=== PATIENT | female | born 1960 | race Caucasian/White ===

== ENCOUNTER 2019-11-07 18:04 | Emergency (ER) | payer BC, OTHER ==
[~2019-11-07] VITALS: Ht 182.9 cm; Wt 101.6 kg
[2019-11-07] MEDS ORDERED: TRAZODONE HCL100 MG PO (18:16)
[2019-11-07] MEDS ORDERED: HYDROCHLOROTHIA25 M2 PO (18:16)
[2019-11-07] MEDS ORDERED: METFORMIN HCL500 M3 PO (18:16)
[2019-11-07] MEDS ORDERED: MEDROL DOSPAK21 TA1 PO (21:30)
[2019-11-07] MEDS ORDERED: FLEXERIL PO (21:30)
[2019-11-07] MEDS ORDERED: HYDROCODON-ACE1 EAC8 PO (21:30)
[2019-11-08 01:26] VITALS: BP 131/84
== END 2019-11-08 01:48 | disposition short-term general hospital (02) ==
LOC: M.ERS 18:04
DX: M54.16 Radiculopathy, lumbar region (principal); E11.9 Type 2 diabetes mellitus without complications; J44.9 Chronic obstructive pulmonary disease, unspecified; J45.909 Unspecified asthma, uncomplicated; F17.210 Nicotine dependence, cigarettes, uncomplicated; Z88.8 Allergy status to other drugs, medicaments and biological substances